=== PATIENT | female | born 1970 | race Caucasian/White ===

== ENCOUNTER 2017-05-29 15:06 | Emergency (ER) | payer OTHER ==
[~2017-05-29] VITALS: Ht 157.5 cm; Wt 86.0 kg
[2017-05-29 15:08] VITALS: Ht 157.5 cm; Wt 86.0 kg
--- NOTE | 2017-05-29 16:16 | ERD ---
ER Documentation Chief Complaint Date/Time DATE: 05/29/17 TIME: 16:14 Chief Complaint Fall HPI 46-year-old female comes in status post trip and fall complaining of right- sided headache, right-sided neck pain and left-sided shoulder pain. She states that she might of had a brief loss of consciousness, without any blurry vision, nausea or vomiting. Pain is diffuse, achy, starts on the right side of her head. Despite the triage nurses know, she is complaining of right-sided shoulder pain. She denies syncope, chest pain. ROS All systems reviewed and are negative except as per history of present illness. Medications Home Meds Active Scripts Ibuprofen* (Motrin*) 600 Mg Tab, 600 MG PO Q6, #30 TAB Prov:JEREMY FRYE PA-C 05/29/17 Allergies Allergies: Coded Allergies: No Known Allergy (Unverified , 05/29/17) PMhx/Soc Medical and Surgical Hx: pt denies Medical Hx History of Surgery: Yes () Physical Exam Vitals Vital Signs Date Time Temp Pulse Resp B/P Pulse Ox O2 Delivery O2 Flow Rate FiO2 05/29/17 15:08 98.9 79 18 136/74 99 Physical Exam General: Well-developed, well-nourished. The patient appears in no acute distress. HEENT: Head is normocephalic, atraumatic. Scalp tenderness on the right temporal scalp, no abrasion, laceration. No scleral icterus. Pupils are equal , round, and reactive. Extraocular movements intact Neck: Supple. Nontender. Diffuse paraspinal tenderness at the right lateral neck, no midline tenderness or crepitus. Lungs: Clear to auscultation. Normal air movement. Heart: Regular rate and rhythm. S1 and S2 are normal. No murmurs, gallops, or rubs. Abdomen: Soft, nontender, nondistended. Bowel sounds are normoactive. Extremities: Right shoulder has full range of motion, there is tenderness over the AC joint, no bony deformities. Neurologic: Alert and oriented 3. No focal deficits. Skin: Normal turgor. No rash or lesions. Results 24 hrs Current Medications Medications (Trade) Dose Ordered Sig/Jazmyn Route PRN Reason Start Time Stop Time Status Last Admin Dose Admin Acetaminophen/ Hydrocodone Bitart ([place] (5/325)) 1 tab ONCE ONCE PO 05/29/17 16:30 05/29/17 16:31 DC 05/29/17 16:15 DIAGNOSTIC IMAGING REPORT Patient: CHUCK CEE : 1970 Age: 46 Sex: F MR #: [id number] DOS: 05/29/17 1603 Ordering MD: JEREMY FRYE PA-C Location: [facility] Room/Bed: PROCEDURE: CT Brain without contrast. CLINICAL INDICATION: Trauma. Occipital headache. TECHNIQUE: A CT of the brain without contrast was performed utilizing axial sections from the skull base through the vertex. The patient was scanned without intravenous contrast enhancement. Sagittal and coronal reformatted images were obtained using the data from the axial images. Total exam DLP is 630.20 mGy-cm. CTDIvol is 44.73 mGy. One or more of the following dose reduction techniques were used: Automated exposure control, adjustment of the mA and/or kV according to patient size, use of iterative reconstruction technique. COMPARISON: None available FINDINGS: There is normal [place]-white matter differentiation. The ventricles and cisterns are normal. There is no intracranial hemorrhage or space-occupying lesion. There is no skull fracture or lytic lesion. IMPRESSION: 1. Normal noncontrast CT scan of the brain. 2. No intracranial hemorrhage. RPTAT: QQ .Fitz Jimenez MD, MD Date Time Electronically viewed and signed by .Fitz Jimenez MD, on 05/29/2017 16:51 .R/ CC: JEREMY FRYE PA-C DIAGNOSTIC IMAGING REPORT Patient: CHUCK CEE : 1970 Age: 46 Sex: F MR #: [id number] DOS: 05/29/17 1603 Ordering MD: JEREMY FRYE PA-C Location: [facility] Room/Bed: PROCEDURE: XR Cervical Spine 3 Views. CLINICAL INDICATION: Neck pain and trauma. TECHNIQUE: AP, lateral and odontoid views of the cervical spine were performed. The images were reviewed on a PACS workstation. COMPARISON: None. FINDINGS: Cervical spine demonstrates a normal lordosis. No fractures or destructive bony lesions are observed. Intervertebral disk heights appear normal. Mild anterior osteophytosis is identified from C4-C7. Facet joints are unremarkable. No prevertebral soft tissue thickening is observed. IMPRESSION: No visualized traumatic injury. Mild degenerative disk disease from C4-C7. If there is high clinical suspicion for traumatic injury, further evaluation with CT should be considered. RPTAT: AA .Calvin Zuluaga MD, MD Date Time Electronically viewed and signed by .Calvin Zuluaga MD, MD on 05/29/2017 17:36 .P/ CC: JEREMY FRYE PA-C DIAGNOSTIC IMAGING REPORT Patient: CHUCK CEE : 1970 Age: 46 Sex: F MR #: [id number] DOS: 05/29/17 1603 Ordering MD: JEREMY FRYE PA-C Location: [facility] Room/Bed: PROCEDURE: Right shoulder 3 views CLINICAL INDICATION: Right shoulder pain and trauma. TECHNIQUE: AP internal and external rotation and transscapular Y views of the right shoulder were obtained COMPARISON: None available FINDINGS: Osseous structures are intact. No destructive bony lesions are observed. Interosseous spaces appear normal. Soft tissues are unremarkable. IMPRESSION: No visualized traumatic injury. If there is high clinical suspicion for traumatic injury, further evaluation with CT should be considered. RPTAT: AA .Calvin Zuluaga MD, MD Date Time Electronically viewed and signed by .Calvin Zuluaga MD, MD on 05/29/2017 17:37 .P/ CC: JEREMY FRYE PA-C Procedures/MDM ED course: Patient was given [place] for pain. Patient's right shoulder was placed in a sling for comfort. Medical decision making: This is a 46-year-old female had a trip and fall complaining of right-sided headache, neck pain and right shoulder pain, patient comes in with a headache however this appears to be soft tissue injury, without underlying skull fracture, no intracranial hemorrhage seen on CT scan of the head. X-rays of the cervical spine as well as right shoulder unremarkable. Patient presents with right shoulder sprain of the AC joint. There does not appear to be any evidence of separation, dislocation, fracture. Departure Diagnosis: Primary Impression: Head injury, acute Additional Impressions: Shoulder sprain Fall Condition: Good JEREMY FRYE PA-C May 29, 2017 16:16
[2017-05-29] MEDS ORDERED: HYDROCODONE/APAP (5/325) TAB PO ONE (16:30)
--- NOTE | 2017-05-29 16:51 | RADRPT ---
PROCEDURE: CT Brain without contrast. CLINICAL INDICATION: Trauma. Occipital headache. TECHNIQUE: A CT of the brain without contrast was performed utilizing axial sections from the skul l base through the vertex. The patient was scanned without intravenous contrast enhancement. Sagitta l and coronal reformatted images were obtained using the data from the axial images. Total exam DLP is 630.20 mGy-cm. CTDIvol is 44.73 mGy. One or more of the following dose reduction techniques we re used: Automated exposure control, adjustment of the mA and/or kV according to patient size, use o f iterative reconstruction technique. COMPARISON: None available FINDINGS: There is normal [place]-white matter differentiation. The ventricles and cisterns are normal. There is no intracranial hemorrhage or space-occupying lesion. There is no skull fracture or lytic lesion. IMPRESSION: 1. Normal noncontrast CT scan of the brain. 2. No intracranial hemorrhage. RPTAT: QQ .Fitz Jimenez MD, MD Date Time Electronically viewed and signed by .Fitz Jimenez MD, on 05/29/2017 16:51 .R/
--- NOTE | 2017-05-29 17:37 | RADRPT ---
PROCEDURE: Right shoulder 3 views CLINICAL INDICATION: Right shoulder pain and trauma. TECHNIQUE: AP internal and external rotation and transscapular Y views of the right shoulder were obtained COMPARISON: None available FINDINGS: Osseous structures are intact. No destructive bony lesions are observed. Interosseous spaces appea r normal. Soft tissues are unremarkable. IMPRESSION: No visualized traumatic injury. If there is high clinical suspicion for traumatic injury, further evaluation with CT should be consi dered. RPTAT: AA .Calvin Zuluaga MD, MD Date Time Electronically viewed and signed by .Calvin Zuluaga MD, on 05/29/2017 17:37 .P/
--- NOTE | 2017-05-29 17:37 | RADRPT ---
PROCEDURE: XR Cervical Spine 3 Views. CLINICAL INDICATION: Neck pain and trauma. TECHNIQUE: AP, lateral and odontoid views of the cervical spine were performed. The images were re viewed on a PACS workstation. COMPARISON: None. FINDINGS: Cervical spine demonstrates a normal lordosis. No fractures or destructive bony lesions are observe d. Intervertebral disk heights appear normal. Mild anterior osteophytosis is identified from C4-C7. Facet joints are unremarkable. No prevertebral soft tissue thickening is observed. IMPRESSION: No visualized traumatic injury. Mild degenerative disk disease from C4-C7. If there is high clinical suspicion for traumatic injury, further evaluation with CT should be consi dered. RPTAT: AA .Calvin Zuluaga MD, Date Time Electronically viewed and signed by .Calvin Zuluaga MD, MD on 05/29/2017 17:36 .P/
[2017-05-29] MEDS ORDERED: IBUP-1542 PO (17:48)
== END 2017-05-29 18:06 | disposition home or self-care (01) ==
LOC: FTE 15:06
DX: S09.90XA Unspecified injury of head, initial encounter (principal); S43.401A Unspecified sprain of right shoulder joint, initial encounter; R51 Headache; W18.39XA Other fall on same level, initial encounter; Y92.9 Unspecified place or not applicable
CPT/HCPCS: 70450; 72040; 73030; Z7502; Z7610